=== PATIENT | male | born 1935 | race Caucasian/White ===

== ENCOUNTER 2018-11-13 00:36 | Emergency (ER) | payer MEDICARE, BC ==
[~2018-11-13] VITALS: Ht 175.3 cm; Wt 77.0 kg
[~2018-11-13 00:36] MED LIST: ACCUPRIL5 MG PO; AZITHROMYCIN250 MG PO; BREO ELLIPTA1 INH; CARVEDILOL25 MG PO; CHERATUSSIN PO; CIPROFLOXACN500 MG PO; CLARITHROMYCIN500 MG OR; IPRATROPIUM BR0.03 %; MEDDOSEPAK PO; PRILOSEC20 MG PO; PRILOSEC40 MG PO; PROMETH/COD1 ML PO; SPIRIVA HANDIHALER; SPIRONO/HCTZ PO; VENTOLIN HF1 IN; WARFARIN1 MG PO
[2018-11-13] MEDS ORDERED: DOXYCYC MONO100 M2 PO (01:13)
[2018-11-13 01:31] VITALS: BP 140/75
== END 2018-11-13 01:31 | disposition home or self-care (01) ==
LOC: ED 00:36
PROC: 0HQEXZZ Repair Left Lower Arm Skin, External Approach (ICD-10-PCS; principal; 2018-11-13)
DX: S51.812A Laceration without foreign body of left forearm, initial encounter (principal); J44.9 Chronic obstructive pulmonary disease, unspecified; I25.2 Old myocardial infarction; X58.XXXA Exposure to other specified factors, initial encounter; Y92.009 Unspecified place in unspecified non-institutional (private) residence as the place of occurrence of the external cause; Z79.01 Long term (current) use of anticoagulants